=== PATIENT | female | born 1935 | race Caucasian/White ===

== ENCOUNTER 2019-04-05 20:24 | Inpatient (IN) | payer MEDICARE ==
[2019-04-05] MEDS ORDERED: ZOSYN/NS 3.375GM/50ML 3.375 GM/50 ML BAG IV ONE (20:36)
[2019-04-05] MEDS ORDERED: NACL 0.9% 1000 ML 1,000 ML IV ONE (20:36)
--- NOTE | 2019-04-05 20:40 | Emergency Department Report ---
ED General Adult HPI - General Stated complaint: CHEST PAIN Time Seen by Provider: 04/05/19 20:34 - History of Present Illness Initial comments: Patient is 83 years old female with history of hypertension, diabetes and early dementia. Patient brought to the emergency room via EMS accompanied by her and her son. Family stated that patient has been more lethargic and complaining of generalized weakness since yesterday. Patient found to be feb rile with a temperature of 103.2 and tachycardic at 102. Sepsis protocol initiated immediately. Family also stated that she fell 3 days ago and landed on her left face with left maxillary area tenderness. Patient denied any headache, loss of consciousness, neck pain, chest pain, abdominal pain, nausea or vomiting. Patient is alert and oriented 3 and able to answer questions appropriately through the translation. - Related Data Home Medications Medication Instructions Recorded Confirmed Last Taken Aspirin [Aspirin BABY CHEW TAB] 81 mg PO DAILY 12/06/14 04/05/19 04/05/19 Metformin HCl [metFORMIN ER] 1,000 mg PO BID 12/06/14 04/05/19 04/05/19 glipiZIDE [glipiZIDE XL] 10 mg PO BID 12/06/14 04/05/19 04/05/19 Fenofibrate 164 mg PO DAILY 12/07/14 04/05/19 04/05/19 Alendronate Sodium [Fosamax] 70 mg PO QWEEK 04/05/19 04/05/19 04/05/19 AtorvaSTATin [Lipitor] 20 mg PO QHS 04/05/19 04/05/19 04/05/19 Carvedilol [Coreg] 6.25 mg PO BID 04/05/19 04/05/19 04/05/19 Desmopressin Acetate 0.2 mg PO DAILY 04/05/19 04/05/19 04/05/19 Icosapent Ethyl [Vascepa] 1 gm PO DAILY 04/05/19 04/05/19 04/05/19 Lisinopril/Hydrochlorothiazide 1 tab PO BID 04/05/19 04/05/19 04/05/19 [Zestoretic 20-25 mg] Pregabalin [Lyrica] 75 mg PO BID 04/05/19 04/05/19 04/05/19 Allergies Allergy/AdvReac Type Severity Reaction Status Date / Time No Known Allergies Allergy Verified 12/03/14 11:19 ED Review of Systems ROS: Stated complaint: CHEST PAIN Other details as noted in HPI Comment: All other systems reviewed and negative Constitutional: chills, fever ENT: denies: throat pain Cardiovascular: palpitations. denies: chest pain Gastrointestinal: denies: abdominal pain, nausea, vomiting, diarrhea, constipation, hematemesis Musculoskeletal: denies: back pain Neurological: weakness (generalizedgeneralized). denies: headache ED Past Medical Hx - Past Medical History Hx Hypertension: Yes (increased cholesterol) Hx Diabetes: Yes Hx Asthma: Yes - Social History Smoking Status: Never Smoker - Medications Home Medications: Home Medications Medication Instructions Recorded Confirmed Last Taken Type Aspirin [Aspirin BABY CHEW TAB] 81 mg PO DAILY 12/06/14 04/05/19 04/05/19 History Metformin HCl [metFORMIN ER] 1,000 mg PO BID 12/06/14 04/05/19 04/05/19 History glipiZIDE [glipiZIDE XL] 10 mg PO BID 12/06/14 04/05/19 04/05/19 History Fenofibrate 164 mg PO DAILY 12/07/14 04/05/19 04/05/19 History Alendronate Sodium [Fosamax] 70 mg PO QWEEK 04/05/19 04/05/19 04/05/19 History AtorvaSTATin [Lipitor] 20 mg PO QHS 04/05/19 04/05/19 04/05/19 History Carvedilol [Coreg] 6.25 mg PO BID 04/05/19 04/05/19 04/05/19 History Desmopressin Acetate 0.2 mg PO DAILY 04/05/19 04/05/19 04/05/19 History Icosapent Ethyl [Vascepa] 1 gm PO DAILY 04/05/19 04/05/19 04/05/19 History Lisinopril/Hydrochlorothiazide 1 tab PO BID 04/05/19 04/05/19 04/05/19 History [Zestoretic 20-25 mg] Pregabalin [Lyrica] 75 mg PO BID 04/05/19 04/05/19 04/05/19 History ED Physical Exam - General General appearance: alert, in no apparent distress - Head Head exam: Present: other (left zygomatic arch area tenderness) - Eye Eye exam: Present: normal appearance, PERRL - ENT ENT exam: Present: normal exam, normal orophraynx, mucous membranes moist - Neck Neck exam: Present: normal inspection, full ROM. Absent: tenderness, meningismus, lymphadenopathy, thyromegaly - Respiratory Respiratory exam: Present: normal lung sounds bilaterally. Absent: respiratory distress, wheezes, chest wall tenderness - Cardiovascular Cardiovascular Exam: Present: tachycardia - GI/Abdominal GI/Abdominal exam: Present: soft, normal bowel sounds. Absent: distended, tenderness, guarding, rebound, rigid, mass, bruit, pulsatile mass, hernia - Extremities Exam Extremities exam: Present: normal inspection, full ROM, normal capillary refill - Back Exam Back exam: Present: normal inspection, full ROM. Absent: CVA tenderness (R), CVA tenderness (L) - Neurological Exam Neurological exam: Present: alert, oriented X3, CN II-XII intact - Skin Skin exam: Present: warm, intact, normal color ED Course Vital Signs 04/05/19 04/05/19 04/05/19 20:30 20:35 20:45 Temperature 101.8 F H Pulse Rate 100 H 99 H Respiratory 29 H 22 Rate Blood Pressure 161/78 158/65 O2 Sat by Pulse 98 98 98 Oximetry 04/05/19 04/05/19 04/05/19 21:00 21:20 21:30 Temperature Pulse Rate 94 H 99 H 102 H Respiratory 29 H 13 17 Rate Blood Pressure 145/63 145/63 145/63 O2 Sat by Pulse 97 88 78 L Oximetry 04/05/19 04/05/19 04/05/19 21:45 22:00 22:16 Temperature Pulse Rate 105 H 103 H 104 H Respiratory 16 24 22 Rate Blood Pressure 135/58 150/51 156/51 O2 Sat by Pulse 91 91 89 Oximetry 04/05/19 22:30 Temperature 101.2 F H Pulse Rate Respiratory Rate Blood Pressure O2 Sat by Pulse Oximetry ED Medical Decision Making - Lab Data Result diagrams: 04/05/19 20:25 04/05/19 20:25 - Radiology Data Radiology results: report reviewed Chest x-ray is unremarkable. - Medical Decision Making Patient is 83 years old female with history of hypertension, diabetes and early dementia. Patient brought to the emergency room via EMS accompanied by her and her son. Family stated that patient has been more lethargic and complaining of generalized weakness since yesterday. Patient found to be febrile with a temperature of 103.2 and tachycardic at 102. Sepsis protocol initiated immediately. Family also stated that she fell 3 days ago and landed on her left face with left maxillary area tenderness. Patient denied any headache, loss of consciousness, neck pain, chest pain, abdominal pain, nausea or vomiting. Patient is alert and oriented 3 and able to answer questions appropriately through the translation. Patient found to have a UTI. Patient receive Zosyn. Chest x-ray is unremarkable. I discussed the patient is Dr. Jessica Tariq, she agreed to admit the patient to medical service. Critical Care Time: Yes Critical care time in (mins) excluding proc time.: 30 Critical care attestation.: If time is entered above; I have spent that time in minutes in the direct care o f this critically ill patient, excluding procedure time. ED Disposition Clinical Impression: Weakness, Sepsis, UTI (urinary tract infection) Disposition: OP ADMIT IP TO THIS HOSP Is pt being admited?: Yes Condition: Stable
[2019-04-05] MEDS ORDERED: TYLENOL ONE (20:51)
[2019-04-05 21:00] LABS: Basophils % (Auto) 0.3 % (0.0-1.8); Eosinophils % (Auto) 0.4 % (0.0-4.3); Hematocrit 41.8 % (30.3-42.9); Hemoglobin 13.8 gm/dl (10.1-14.3); Lymphocytes # (Auto) 0.9 K/mm3 (1.2-5.4); Mean Corpuscular HGB Conc 33 % (30-34); Mean Corpuscular Volume 88 fl (79-97); Monocytes # (Auto) 0.8 K/mm3 (0.0-0.8); Monocytes % (Auto) 8.8 % (0.0-7.3); Platelet Count 168 K/mm3 (140-440); Red Blood Count 4.78 M/mm3 (3.65-5.03); Red Cell Distribution Width 13.4 % (13.2-15.2)
[2019-04-05] MEDS ORDERED: TYLENOL PO ONE (21:00)
[2019-04-05 21:11] LABS: Amorphous Crystals,Urine 1+; Bilirubin,Urine NEG (Negative); Blood,Urine MOD (Negative); Color,Urine Amber (Yellow); Mucus,Urine FEW /HPF; Urobilinogen,Urine < 2.0 mg/dL (<2.0)
[2019-04-05 21:12] LABS: Protein,Urine >500 mg/dL (Negative)
[2019-04-05 21:22] LABS: Albumin 3.4 g/dL (3.9-5)
--- NOTE | 2019-04-05 21:29 | XRay Report ---
PROCEDURE: XR CHEST 1V AP TECHNIQUE: Chest radiograph single view. HISTORY: cough COMPARISONS: None . FINDINGS: There is prominence of the interstitial markings in both lungs with peribronchial thickening, acute v ersus chronic. There is no evidence of focal infiltrate, pneumothorax or pleural fluid collection. The cardiac silhouette is enlarged. The thoracic aorta is tortuous with atherosclerotic vascular calcification. There appears to be prominence of the hilar structures bilaterally. Whether or not this represents pu lmonary vascular structures or adenopathy is unclear. The bony structures are osteopenic in appearance. IMPRESSION: 1. Prominence of the interstitial markings with peribronchial thickening, acute versus chronic. 2. Enlarged cardiac silhouette. 3. Tortuosity thoracic aorta with atherosclerotic vascular calcification. 4. Prominence of the hilar structures bilaterally. Prominent vascular structures versus adenopathy. CT chest may be helpful for further evaluation. This document is electronically signed by Matilde Gutierrez MD., Apr 05 2019 09:27:35 PM ET
--- NOTE | 2019-04-05 22:00 | Cat Scan Report ---
PROCEDURE: CT HEAD/BRAIN WO CON TECHNIQUE: Computerized tomography of the head was performed without contrast material. CT DOSE LENGTH PRODUCT: 1585.78 mGycm HISTORY: head injury COMPARISONS: CT face also performed today . FINDINGS: There is no evidence of an acute intracranial process, intracranial hemorrhage or mass effect. There is an approximately 1 cm partially calcified extra-axial mass in the right frontal region. Prob able small meningioma. There are chronic lacunar infarcts in the right caudate and in the dennis on the right. Ventricular size is concordant with the degree of atrophy. There is atherosclerotic vascular calcification of the internal carotid arteries bilaterally at the s kull base. The visualized portions of the orbits, paranasal and mastoid sinuses are unremarkable. There is no evidence of fracture. 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 There is postsurgical change in the region of the nasal bones. IMPRESSION: 1. No evidence of an acute intracranial process, intracranial hemorrhage or mass effect. 2. Small right frontal meningioma. 3. Chronic lacunar infarct right caudate and dennis on the right. 4. No evidence of fracture. This document is electronically signed by Matilde Gutierrez MD., Apr 05 2019 09:58:15 PM ET
--- NOTE | 2019-04-05 22:07 | Cat Scan Report ---
PROCEDURE: CT FACIAL BONES WO CON TECHNIQUE: Axial helical imaging through the face with sagittal and coronal reformatted images obtai liza. HISTORY: FALL, FACIAL TRAUMA COMPARISONS: Head CT also performed today FINDINGS: There is no evidence of fracture. There is postsurgical change in the region of the nasal bones. Paranasal sinuses are unremarkable. The orbital contents are unremarkable. There is a small right frontal partially calcified meningioma. The visualized portion of the cervical spine is notable for cervical spondylosis with multiple level canal stenosis. IMPRESSION: 1. No evidence of fracture. 2. Postsurgical change in the region of the nasal bones. 3. Small right frontal meningioma. 4. Cervical spondylosis with the appearance of multiple level canal stenosis. This document is electronically signed by Matilde Gutierrez MD., Apr 05 2019 10:05:37 PM ET
--- NOTE | 2019-04-05 23:57 | History and Physical Report ---
History of Present Illness Date of examination: 04/05/19 Date of admission: 04/05/19 23:25 History of present illness: 83-year-old woman with a history of diabetes, hypertension, hyperlipidemia, dementia comes to the emergency room because the state that she needed assistance to do her ADLs. She feels weak, status post fall yesterday, hit her face, no trauma to head. History is per the via the [employer], unable to obtain review of systems PAST MEDICAL HISTORY: PAST SURGICAL HISTORY: None SOCIAL HISTORY: Denies alcohol, drugs, tobacco FAMILY HISTORY: Hypertension Medications and Allergies Allergies Allergy/AdvReac Type Severity Reaction Status Date / Time No Known Allergies Allergy Verified 12/03/14 11:19 Home Medications Medication Instructions Recorded Confirmed Last Taken Type Aspirin [Aspirin BABY CHEW TAB] 81 mg PO DAILY 12/06/14 04/05/19 04/05/19 Histo ry Metformin HCl [metFORMIN ER] 1,000 mg PO BID 12/06/14 04/05/19 04/05/19 History glipiZIDE [glipiZIDE XL] 10 mg PO BID 12/06/14 04/05/19 04/05/19 History Fenofibrate 164 mg PO DAILY 12/07/14 04/05/19 04/05/19 History Alendronate Sodium [Fosamax] 70 mg PO QWEEK 04/05/19 04/05/19 04/05/19 History AtorvaSTATin [Lipitor] 20 mg PO QHS 04/05/19 04/05/19 04/05/19 History Carvedilol [Coreg] 6.25 mg PO BID 04/05/19 04/05/19 04/05/19 History Desmopressin Acetate 0.2 mg PO DAILY 04/05/19 04/05/19 04/05/19 History Icosapent Ethyl [Vascepa] 1 gm PO DAILY 04/05/19 04/05/19 04/05/19 History Lisinopril/Hydrochlorothiazide 1 tab PO BID 04/05/19 04/05/19 04/05/19 History [Zestoretic 20-25 mg] Pregabalin [Lyrica] 75 mg PO BID 04/05/19 04/05/19 04/05/19 History Exam - Physical Exam Narrative exam: General Apperance: The patient lying in bed, breathing comfortable HEENT: Normocephalic, atraumatic. Pupils equally round and reactive to light, EOMI, no sclericterus or JVD or thyromegaly or nodule. , no carotid bruit, mucous membranes moist, no exudate or erythema Heart: S1-S2, regular is rhythm Lungs: Clear to auscultation bilaterally, breathing comfortable Abdomen: Positive bowel sounds, soft, nontender, nondistended, no organomegaly Extremities: No edema cyanosis clubbing Skin: no rash, nodule, warm and dry Neuro: cranial nerves 2-12 intact, speech is fluent, motor/sensory intact - Constitutional Vitals: Temp Pulse Resp BP Pulse Ox 101.2 F H 97 H 17 107/46 96 04/05/19 22:30 04/05/19 23:45 04/05/19 23:45 04/05/19 23:45 04/05/19 23:45 Results - Labs CBC & Chem 7: 04/05/19 20:25 04/05/19 20:25 Labs: Abnormal lab results 04/05/19 04/05/19 04/05/19 Range/Units 20:25 20:25 20:47 Lymph % (Auto) 10.0 L (13.4-35.0) % [place] % (Auto) 8.8 H (0.0-7.3) % Lymph # 0.9 L (1.2-5.4) K/mm3 Seg Neutrophils % 80.5 H (40.0-70.0) % Sodium 131 L (137-145) mmol/L Chloride 93.9 L (98-107) mmol/L BUN 30 H (7-17) mg/dL Creatinine 1.7 H (0.7-1.2) mg/dL Glucose 153 H (65-100) mg/dL Albumin 3.4 L (3.9-5) g/dL Urine WBC (Auto) 64.0 H (0.0-6.0) /HPF - Imaging and Cardiology Chest x-ray: report reviewed CT Scan - head: report reviewed Assessment and Plan CT face reviewed Assessment Acute renal failure Urinary tract infection Diabetes Dementia Hyperlipidemia Plan Admit to medicine Start IV fluid, monitor kidney function Sart IV Rocephin, cultures Check fingersticks, hold sliding scale until she is eating DVT prophylaxis
[2019-04-06] MEDS ORDERED: D50W (25GM) Syringe IV PRN (00:02)
[2019-04-06] MEDS ORDERED: ZOFRAN IV PRN (00:02)
[2019-04-06] MEDS ORDERED: SODIUM CHLORIDE FLUSH SYRINGE 10 ML IV PRN (00:02)
[2019-04-06] MEDS: NACL 0.9% 1000 ML 1,000 ML IV SCH ×2 (01:23→15:57)
[2019-04-06] MEDS: ROCEPHIN/NS 1 GM/50 ML 1 GM/50 ML BAG IV SCH (07:22)
[2019-04-06] MEDS: TYLENOL PO PRN ×2 (07:22→21:46)
[2019-04-06 09:29] LABS: Basophils % (Auto) 0.3 % (0.0-1.8); Eosinophils # (Auto) 0.1 K/mm3 (0.0-0.4); Eosinophils % (Auto) 0.9 % (0.0-4.3); Hematocrit 36.8 % (30.3-42.9); Hemoglobin 12.4 gm/dl (10.1-14.3); Lymphocytes # (Auto) 0.9 K/mm3 (1.2-5.4); Lymphocytes % (Auto) 13.6 % (13.4-35.0); Mean Corpuscular HGB Conc 34 % (30-34); Mean Corpuscular Volume 87 fl (79-97); Monocytes # (Auto) 0.6 K/mm3 (0.0-0.8); Monocytes % (Auto) 9.9 % (0.0-7.3); Platelet Count 130 K/mm3 (140-440); Red Blood Count 4.23 M/mm3 (3.65-5.03); Red Cell Distribution Width 13.6 % (13.2-15.2)
[2019-04-06 09:45] LABS: Calcium 7.7 mg/dL (8.4-10.2)
[2019-04-06] MEDS ORDERED: DESMOPRESSIN ACETATE 0.2 MG PO SCH (10:00)
[2019-04-06] MEDS ORDERED: FENOFIBRATE PO SCH (10:00)
--- NOTE | 2019-04-06 10:03 | Progress Note ---
Assessment and Plan Assessment and plan: Urinary tract infection admitted to [facility] Ceftriaxone iv ROMELIA possibly due to vasomotor nephropathy improving, on iv fluids Generalized weakness due to dehydration Hyponatremia Improving Na 136 today Diabetes mellitus type 2 Fingerstick glucose q ac and hs Hyperlipidemia Dementia Used language line for communication with Patient and . Patient is Martiniquais Hopefully dc home in 1-2 days History Interval history: generalized weakness fell at home Hospitalist Physical - Physical exam Narrative exam: Gen: Not in acute distress, lying in bed, HEENT: Normocephalic, atraumatic Neck: supple, no JVD Heart: S1 and S2 reg, no murmurs, rubs or gallop Lungs: Clear, no crackles, no wheeze Abd: soft, non tender, non distended, normal BS Ext: No edema, no clubbing, no cyanosis, Neuro: Awake,alert, oriented x 3, moves all ext, non focal Psych:Normal mood - Constitutional Vitals: Temp Pulse Resp BP Pulse Ox 99.5 F 93 H 20 128/60 95 04/06/19 08:20 04/06/19 08:20 04/06/19 08:20 04/06/19 08:20 04/06/19 08:21 Results - Labs CBC & Chem 7: 04/06/19 09:09 04/06/19 09:09 Labs: Laboratory Last Values WBC 6.5 K/mm3 (4.5-11.0) 04/06/19 09:09 RBC 4.23 M/mm3 (3.65-5.03) 04/06/19 09:09 Hgb 12.4 gm/dl (10.1-14.3) 04/06/19 09:09 Hct 36.8 % (30.3-42.9) 04/06/19 09:09 MCV 87 fl (79-97) 04/06/19 09:09 MCH 29 pg (28-32) 04/06/19 09:09 MCHC 34 % (30-34) 04/06/19 09:09 RDW 13.6 % (13.2-15.2) 04/06/19 09:09 Plt Count 130 K/mm3 (140-440) L 04/06/19 09:09 Lymph % (Auto) 13.6 % (13.4-35.0) 04/06/19 09:09 Falls % (Auto) 9.9 % (0.0-7.3) H 04/06/19 09:09 Eos % (Auto) 0.9 % (0.0-4.3) 04/06/19 09:09 Baso % (Auto) 0.3 % (0.0-1.8) 04/06/19 09:09 Lymph # 0.9 K/mm3 (1.2-5.4) L 04/06/19 09:09 Falls # 0.6 K/mm3 (0.0-0.8) 04/06/19 09:09 Eos # 0.1 K/mm3 (0.0-0.4) 04/06/19 09:09 Baso # 0.0 K/mm3 (0.0-0.1) 04/06/19 09:09 Seg Neutrophils % 75.3 % (40.0-70.0) H 04/06/19 09:09 Seg Neutrophils # 4.9 K/mm3 (1.8-7.7) 04/06/19 09:09 Sodium 136 mmol/L (137-145) L 04/06/19 09:09 Potassium 3.8 mmol/L (3.6-5.0) 04/06/19 09:09 Chloride 99.7 mmol/L (98-107) 04/06/19 09:09 Carbon Dioxide 24 mmol/L (22-30) 04/06/19 09:09 16 mmol/L 04/06/19 09:09 BUN 27 mg/dL (7-17) H 04/06/19 09:09 1.6 mg/dL (0.7-1.2) H 04/06/19 09:09 Estimated GFR 31 ml/min 04/06/19 09:09 17 % 04/06/19 09:09 Glucose 159 mg/dL (65-100) H 04/06/19 09:09 POC Glucose 138 (70-105) H 04/06/19 08:19 Lactic Acid 0.80 mmol/L (0.7-2.0) 04/05/19 23:08 Calcium 7.7 mg/dL (8.4-10.2) L 04/06/19 09:09 0.50 mg/dL (0.1-1.2) 04/05/19 20:25 AST 32 units/L (5-40) 04/05/19 20:25 ALT 25 units/L (7-56) 04/05/19 20:25 78 units/L (35-129) 04/05/19 20:25 < 0.010 ng/mL (0.00-0.029) 04/05/19 20:25 7.8 g/dL (6.3-8.2) 04/05/19 20:25 3.4 g/dL (3.9-5) L 04/05/19 20:25 0.8 % 04/05/19 20:25 Bonnie (Yellow) 04/05/19 20:47 Cloudy (Clear) 04/05/19 20:47 5.0 (5.0-7.0) 04/05/19 20:47 Ur Specific [place] 1.016 (1.003-1.030) 04/05/19 20:47 >500 mg/dL (Negative) 04/05/19 20:47 50 mg/dL (Negative) 04/05/19 20:47 Neg mg/dL (Negative) 04/05/19 20:47 Mod (Negative) 04/05/19 20:47 Neg (Negative) 04/05/19 20:47 Neg (Negative) 04/05/19 20:47 < 2.0 mg/dL (<2.0) 04/05/19 20:47 Ur Leukocyte Esterase Sm (Negative) 04/05/19 20:47 64.0 /HPF (0.0-6.0) H 04/05/19 20:47 7.0 /HPF (0.0-6.0) 04/05/19 20:47 3+ /HPF 04/05/19 20:47 Amorphous Crystals 1+ 04/05/19 20:47 Few /HPF 04/05/19 20:47 Active Medications - Current Medications Current Medications: Generic Name Dose Route Start Last Admin Trade Name Freq PRN Reason Stop Dose Admin Acetaminophen 650 mg 04/06/19 00:02 04/06/19 07:22 Tylenol PO 650 mg Q4H PRN Administration Pain MILD(1-3)/Fever >100.5/VILLALBA Aspirin 81 mg 04/06/19 10:00 Baby Aspirin PO DAILY KASSIE Atorvastatin Calcium 20 mg 04/06/19 22:00 Lipitor PO QHS KASSIE Desmopressin Acetate 0.2 mg 04/06/19 10:00 Ddavp PO DAILY KASSIE Dextrose 50 ml 04/06/19 00:02 D50w (25gm) Syringe IV PRN PRN Hypoglycemia Enoxaparin Sodium 30 mg 04/06/19 10:00 Lovenox SUB-Q QDAY KASSIE Fenofibrate 145 mg 04/06/19 10:00 Tricor PO DAILY KASSIE Sodium Chloride 1,000 mls @ 75 mls/hr 04/06/19 01:00 04/06/19 01:23 Nacl 0.9% 1000 Ml IV 75 mls/hr DIRECT KASSIE Administration Ceftriaxone Sodium 1 gm in 50 mls @ 100 mls/hr 04/06/19 06:26 04/06/19 07:22 Rocephin/Ns 1 Gm/50 Ml IV 100 mls/hr Q24HR KASSIE Administration Protocol Miscellaneous Medication 1 gm 04/06/19 10:00 Icosapent Ethyl [Vascepa] PO DAILY [facility] Ondansetron HCl 4 mg 04/06/19 00:02 Zofran IV Q8H PRN Nausea And Vomiting Pneumococcal Polyvalent Vaccine 0.5 ml 04/06/19 12:00 Pneumovax 23 IM 04/06/19 12:01 .ONCE ONE Pregabalin 75 mg 04/06/19 10:00 Lyrica PO BID KASSIE Sodium Chloride 10 ml 04/06/19 10:00 Sodium Chloride Flush Syringe 10 Ml IV BID KASSIE Sodium Chloride 10 ml 04/06/19 00:02 Sodium Chloride Flush Syringe 10 Ml IV PRN PRN LINE FLUSH
[2019-04-06] MEDS: TRICOR PO SCH (10:16)
[2019-04-06] MEDS: LOVENOX SUB-Q SCH (10:16)
[2019-04-06] MEDS: SODIUM CHLORIDE FLUSH SYRINGE 10 ML IV SCH ×2 (10:16→21:48)
[2019-04-06] MEDS: BABY ASPIRIN PO SCH (10:16)
[2019-04-06] MEDS: LYRICA PO SCH ×2 (10:17→21:47)
[2019-04-06] MEDS: DDAVP PO SCH (10:36)
[2019-04-06] MEDS ORDERED: AFLURIA QUAD 2018-2019 SYRINGE IM ONE (12:00)
[2019-04-06] MEDS ORDERED: PNEUMOVAX 23 IM ONE (12:00)
[2019-04-06] MEDS: ICOSAPENT ETHYL 1 GM PO SCH (16:44)
[2019-04-06] MEDS: COREG PO SCH (21:47)
[2019-04-07] MEDS: NACL 0.9% 1000 ML 1,000 ML IV SCH ×2 (02:59→22:08)
[2019-04-07 05:33] LABS: Hematocrit 35.8 % (30.3-42.9); Hemoglobin 12.1 gm/dl (10.1-14.3); Mean Corpuscular HGB Conc 34 % (30-34); Mean Corpuscular Volume 87 fl (79-97); Platelet Count 147 K/mm3 (140-440); Red Blood Count 4.11 M/mm3 (3.65-5.03); Red Cell Distribution Width 13.7 % (13.2-15.2)
[2019-04-07 05:55] LABS: Calcium 7.9 mg/dL (8.4-10.2)
[2019-04-07] MEDS: TYLENOL PO PRN (09:07)
[2019-04-07] MEDS: LYRICA PO SCH ×2 (09:08→22:09)
[2019-04-07] MEDS: COREG PO SCH ×2 (09:08→22:09)
[2019-04-07] MEDS: BABY ASPIRIN PO SCH (09:09)
[2019-04-07] MEDS: DDAVP PO SCH (09:09)
[2019-04-07] MEDS: TRICOR PO SCH (09:09)
[2019-04-07] MEDS: LOVENOX SUB-Q SCH (09:09)
[2019-04-07] MEDS: ROCEPHIN/NS 1 GM/50 ML 1 GM/50 ML BAG IV SCH (09:10)
[2019-04-07] MEDS: ICOSAPENT ETHYL 1 GM PO SCH (09:12)
[2019-04-07] MEDS: SODIUM CHLORIDE FLUSH SYRINGE 10 ML IV SCH ×2 (09:12→22:10)
--- NOTE | 2019-04-07 10:56 | Progress Note ---
Assessment and Plan Assessment and plan: 83-year-old woman with a history of diabetes, hypertension, hyperlipidemia, dementia comes to the emergency room because the state that she needed assistance to do her ADLs. She feels weak, status post fall yesterday, hit her face, no trauma to head. History is per the via the interpreter translator, unable to obtain review of systems Sepsis secondary to Acute cystitis -As NOTED Below. Blood culture with no growth, obtain renal ultrasound Acute Metabolic encephalopathy -MRI head pending. Urinary tract infection admitted to [facility] Ceftriaxone iv Still with fever Consult ID ROMELIA possibly due to vasomotor nephropathy improving, on iv fluids Generalized weakness due to dehydration Hyponatremia Improving Diabetes mellitus type 2 Fingerstick glucose q ac and hs Hyperlipidemia Dementia frontal meningioma on CT -Pt to follow with PCP outpatient for further work up. Discussed with patient and -Check MRI per request -Possible Adenopathy ON CT CHEST -Also to follow with PCP for further work up and repeat imaging. Discussed with patient and -Discussed with ID will obtain CT chest Used language line for communication with Patient and . Patient is Viet[place] amese Hopefully dc home in 1 day History Interval history: Patient seen and examined, Discussion with patient and via [employer] interpreter translator #[id number]. Per the , although he is unable to accurately account for timelines he states the patient has been having cough which she thinks started after the fall. He also reports to me that the patient has been speaking "nonsensical" intermittently for the past few days prior to this event. Nursing staff reports fever again today Hospitalist Physical - Physical exam Narrative exam: VITAL SIGNS: Reviewed. GENERAL: The patient appeared well nourished and normally developed, obese, lethargic. Vital signs as documented. HEAD: No signs of head trauma. right maxillary sinus swelling, no echymosis EYES: Pupils are equal. Extraocular motions intact. EARS: Hearing grossly intact. MOUTH: Oropharynx is normal. NECK: No adenopathy, no JVD. Mildly tender on the right side. CHEST: Chest with clear breath sounds bilaterally. No wheezes, rales, or rhonchi. CARDIAC: Regular rate and rhythm. S1 and S2, without murmurs, gallops, or rubs. VASCULAR: No Edema. Peripheral pulses normal and equal in all extremities. ABDOMEN: Soft, non tender and non distended. No rebound or guarding, and no masses palpated. Bowel Sounds normal. MUSCULOSKELETAL: Good range of motion of all major joints. Extremities without clubbing, cyanosis or edema. NEUROLOGIC EXAM: Alert and oriented x 2 No focal sensory or strength deficits. Speech normal but often uncomprehending per . Follows some commands. PSYCHIATRIC: Mood normal. SKIN: No rash or lesions. - Constitutional Vitals: Temp Pulse Resp BP Pulse Ox 101.3 F H 85 20 144/65 97 04/07/19 07:56 04/07/19 09:08 04/07/19 10:00 04/07/19 09:08 04/07/19 10:00 Results - Labs CBC & Chem 7: 04/07/19 04:43 04/07/19 04:43 Labs: Laboratory Last Values WBC 5.2 K/mm3 (4.5-11.0) 04/07/19 04:43 RBC 4.11 M/mm3 (3.65-5.03) 04/07/19 04:43 Hgb 12.1 gm/dl (10.1-14.3) 04/07/19 04:43 Hct 35.8 % (30.3-42.9) 04/07/19 04:43 MCV 87 fl (79-97) 04/07/19 04:43 MCH 29 pg (28-32) 04/07/19 04:43 MCHC 34 % (30-34) 04/07/19 04:43 RDW 13.7 % (13.2-15.2) 04/07/19 04:43 Plt Count 147 K/mm3 (140-440) 04/07/19 04:43 Lymph % (Auto) 13.6 % (13.4-35.0) 04/06/19 09:09 [place] % (Auto) 9.9 % (0.0-7.3) H 04/06/19 09:09 Eos % (Auto) 0.9 % (0.0-4.3) 04/06/19 09:09 Baso % (Auto) 0.3 % (0.0-1.8) 04/06/19 09:09 Lymph # 0.9 K/mm3 (1.2-5.4) L 04/06/19 09:09 [place] # 0.6 K/mm3 (0.0-0.8) 04/06/19 09:09 Eos # 0.1 K/mm3 (0.0-0.4) 04/06/19 09:09 Baso # 0.0 K/mm3 (0.0-0.1) 04/06/19 09:09 Seg Neutrophils % 75.3 % (40.0-70.0) H 04/06/19 09:09 Seg Neutrophils # 4.9 K/mm3 (1.8-7.7) 04/06/19 09:09 Sodium 138 mmol/L (137-145) 04/07/19 04:43 Potassium 4.2 mmol/L (3.6-5.0) 04/07/19 04:43 Chloride 104.7 mmol/L (98-107) 04/07/19 04:43 Carbon Dioxide 22 mmol/L (22-30) 04/07/19 04:43 16 mmol/L 04/07/19 04:43 BUN 23 mg/dL (7-17) H 04/07/19 04:43 1.4 mg/dL (0.7-1.2) H 04/07/19 04:43 Estimated GFR 36 ml/min 04/07/19 04:43 16 % 04/07/19 04:43 Glucose 165 mg/dL (65-100) H 04/07/19 04:43 POC Glucose 169 (70-105) H 04/07/19 06:06 Lactic Acid 0.80 mmol/L (0.7-2.0) 04/05/19 23:08 Calcium 7.9 mg/dL (8.4-10.2) L 04/07/19 04:43 0.50 mg/dL (0.1-1.2) 04/05/19 20:25 AST 32 units/L (5-40) 04/05/19 20:25 ALT 25 units/L (7-56) 04/05/19 20:25 78 units/L (35-129) 04/05/19 20:25 < 0.010 ng/mL (0.00-0.029) 04/05/19 20:25 7.8 g/dL (6.3-8.2) 04/05/19 20:25 3.4 g/dL (3.9-5) L 04/05/19 20:25 0.8 % 04/05/19 20:25 Bonnie (Yellow) 04/05/19 20:47 Cloudy (Clear) 04/05/19 20:47 5.0 (5.0-7.0) 04/05/19 20:47 Ur Specific Foley 1.016 (1.003-1.030) 04/05/19 20:47 >500 mg/dL (Negative) 04/05/19 20:47 50 mg/dL (Negative) 04/05/19 20:47 Neg mg/dL (Negative) 04/05/19 20:47 Mod (Negative) 04/05/19 20:47 Neg (Negative) 04/05/19 20:47 Neg (Negative) 04/05/19 20:47 < 2.0 mg/dL (<2.0) 04/05/19 20:47 Ur Leukocyte Esterase Sm (Negative) 04/05/19 20:47 64.0 /HPF (0.0-6.0) H 04/05/19 20:47 7.0 /HPF (0.0-6.0) 04/05/19 20:47 3+ /HPF 04/05/19 20:47 Amorphous Crystals 1+ 04/05/19 20:47 Few /HPF 04/05/19 20:47 Active Medications - Current Medications Current Medications: Generic Name Dose Route Start Last Admin Trade Name Freq PRN Reason Stop Dose Admin Acetaminophen 650 mg 04/06/19 00:02 04/07/19 09:07 Tylenol PO 650 mg Q4H PRN Administration Pain MILD(1-3)/Fever >100.5/VILLALBA Aspirin 81 mg 04/06/19 10:00 04/07/19 09:09 Baby Aspirin PO 81 mg DAILY KASSIE Administration Atorvastatin Calcium 20 mg 04/06/19 22:00 04/06/19 21:47 Lipitor PO 20 mg QHS KASSIE Administration Carvedilol 6.25 mg 04/06/19 22:00 04/07/19 09:08 Coreg PO 6.25 mg BID KASSIE Administration Desmopressin Acetate 0.2 mg 04/06/19 10:00 04/07/19 09:09 Ddavp PO 0.2 mg DAILY KASSIE Administration Dextrose 50 ml 04/06/19 00:02 D50w (25gm) Syringe IV PRN PRN Hypoglycemia Enoxaparin Sodium 30 mg 04/06/19 10:00 04/07/19 09:09 Lovenox SUB-Q 30 mg QDAY KASSIE Administration Fenofibrate 145 mg 04/06/19 10:00 04/07/19 09:09 Tricor PO 145 mg DAILY KASSIE Administration Sodium Chloride 1,000 mls @ 75 mls/hr 04/06/19 01:00 04/07/19 02:59 Nacl 0.9% 1000 Ml IV 75 mls/hr DIRECT KASSIE Administration Ceftriaxone Sodium 1 gm in 50 mls @ 100 mls/hr 04/06/19 06:26 04/07/19 09:10 Rocephin/Ns 1 Gm/50 Ml IV 100 mls/hr Q24HR KASSIE Administration Protocol Miscellaneous Medication 1 gm 04/06/19 10:00 04/07/19 09:12 Icosapent Ethyl [Vascepa] PO 1 gm DAILY KASSIE Administration Ondansetron HCl 4 mg 04/06/19 00:02 Zofran IV Q8H PRN Nausea And Vomiting Pregabalin 75 mg 04/06/19 10:00 04/07/19 09:08 Lyrica PO 75 mg BID KASSIE Administration Sodium Chloride 10 ml 04/06/19 10:00 04/07/19 09:12 Sodium Chloride Flush Syringe 10 Ml IV 10 ml BID KASSIE Administration Sodium Chloride 10 ml 04/06/19 00:02 Sodium Chloride Flush Syringe 10 Ml IV PRN PRN LINE FLUSH Nutrition/Malnutrition Assess - Dietary Evaluation Nutrition/Malnutrition Findings: Nutrition Notes Start: 04/06/19 11:55 Freq: Status: Active Protocol: Document 04/06/19 11:55 AMEE (Rec: 04/06/19 12:00 [facility] SRW- [email or web address]) Nutrition Notes Need for 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 Burn Absent Trauma Absent Difficulty In Chewing #1 Nutrition Diagnosis Predicted suboptimal energy intake Etiology advanced age; hx of dementia, UTI As Evidenced by Signs and Symptoms pt confused upon arrival and is weak Is patient on ventilator? No Is Patient Ambulatory and/or Out of Bed No REE-([facility]-confined to bed) 0728.812 Calculation Used for Recommendations [facility] Additional Notes Pro needs 1-1.2g/k-82g/ day Fluid needs 1ml/kcal Nutrition Intervention Change Diet Order: Add mech soft modifier to current diet order Goal #1 PO intake of meals to meet at least 75% of energy and pro needs Anticipated Discharge Needs: None identified at this time Follow-Up By: 04/09/19 Additional Comments F/U: intakes
--- NOTE | 2019-04-07 16:02 | Consultation ---
History of Present Illness - Reason for Consult Consult date: 04/07/19 sepsis, UTI Requesting physician: SO LIAO - History of Present Illness 83 y/o female with history of hypertension, diabetes and early dementia admitted on due to 3-day history of AMS/confusion, generalized weakness and a fall from bed to ground landing on her left face. 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 states she was fine before fall however reports some cough for a week. Denies hemoptysis or history of TB. Patient came to [facility] 25 years ago. In the ED, temp 101.8, HR 100, R29, O2 98, BP 161/78. WBC 9.4. Hg 13.8. Plat 168. Creat 1.7. LFTs normal. UA with 64 wbc, small LE, 3+ wbc clumps. Blood cultures 04/05/2019no growth today. MRSA screening neg. CXR showed prominence of the interstitial markings with peribronchial thickening, acute versus chronic, enlarged cardiac silhouette, tortuosity thoracic aorta with atherosclerotic vascular calcification and prominence of the hilar structures bilaterally. Prominent vascular structures versus adenopathy. CT face no fractures. Review of Systems: unable to obtain. Medications and Allergies Allergies Allergy/AdvReac Type Severity Reaction Status Date / Time No Known Allergies Allergy Verified 12/03/14 11:19 Home Medications Medication Instructions Recorded Confirmed Last Taken Type Aspirin [Aspirin BABY CHEW TAB] 81 mg PO DAILY 12/06/14 04/05/19 04/05/19 History Metformin HCl [metFORMIN ER] 1,000 mg PO BID 12/06/14 04/05/19 04/05/19 History glipiZIDE [glipiZIDE XL] 10 mg PO BID 12/06/14 04/05/19 04/05/19 History Fenofibrate 164 mg PO DAILY 12/07/14 04/05/19 04/05/19 History Alendronate Sodium [Fosamax] 70 mg PO QWEEK 04/05/19 04/05/19 04/05/19 History AtorvaSTATin [Lipitor] 20 mg PO QHS 04/05/19 04/05/19 04/05/19 History Carvedilol [Coreg] 6.25 mg PO BID 04/05/19 04/05/19 04/05/19 History Desmopressin Acetate 0.2 mg PO DAILY 04/05/19 04/05/19 04/05/19 History Icosapent Ethyl [Vascepa] 1 gm PO DAILY 04/05/19 04/05/19 04/05/19 History Lisinopril/Hydrochlorothiazide 1 tab PO BID 04/05/19 04/05/19 04/05/19 History [Zestoretic 20-25 mg] Pregabalin [Lyrica] 75 mg PO BID 04/05/19 04/05/19 04/05/19 History Active Meds: Active Medications Acetaminophen (Tylenol) 650 mg PO Q4H PRN PRN Reason: Pain MILD(1-3)/Fever >100.5/VILLALBA Last Admin: 04/07/19 09:07 Dose: 650 mg Documented by: Aspirin (Baby Aspirin) 81 mg PO DAILY [facility] Last Admin: 04/07/19 09:09 Dose: 81 mg Documented by: Atorvastatin Calcium (Lipitor) 20 mg PO QHS [facility] Last Admin: 04/06/19 21:47 Dose: 20 mg Documented by: Carvedilol (Coreg) 6.25 mg PO BID [facility] Last Admin: 04/07/19 09:08 Dose: 6.25 mg Documented by: Desmopressin Acetate (Ddavp) 0.2 mg PO DAILY [facility] Last Admin: 04/07/19 09:09 Dose: 0.2 mg Documented by: Dextrose (D50w (25gm) Syringe) 50 ml IV PRN PRN PRN Reason: Hypoglycemia Enoxaparin Sodium (Lovenox) 30 mg SUB-Q QDAY [facility] Last Admin: 04/07/19 09:09 Dose: 30 mg Documented by: Fenofibrate (Tricor) 145 mg PO DAILY [facility] Last Admin: 04/07/19 09:09 Dose: 145 mg Documented by: Sodium Chloride (Nacl 0.9% 1000 Ml) 1,000 mls @ 75 mls/hr IV DIRECT [facility] Last Admin: 04/07/19 02:59 Dose: 75 mls/hr Documented by: Ceftriaxone Sodium (Rocephin/Ns 1 Gm/50 Ml) 1 gm in 50 mls @ 100 mls/hr IV Q24HR [facility]; Protocol Last Admin: 04/07/19 09:10 Dose: 100 mls/hr Documented by: Insulin Human Lispro (Humalog) 0 unit SUB-Q ACHS [facility]; Protocol Miscellaneous Medication (Icosapent Ethyl [Vascepa]) 1 gm PO DAILY [facility] Last Admin: 04/07/19 09:12 Dose: 1 gm Documented by: Ondansetron HCl (Zofran) 4 mg IV Q8H PRN PRN Reason: Nausea And Vomiting Pregabalin (Lyrica) 75 mg PO BID [facility] Last Admin: 04/07/19 09:08 Dose: 75 mg Documented by: Sodium Chloride (Sodium Chloride Flush Syringe 10 Ml) 10 ml IV BID [facility] Last Admin: 04/07/19 09:12 Dose: 10 ml Documented by: Sodium Chloride (Sodium Chloride Flush Syringe 10 Ml) 10 ml IV PRN PRN PRN Reason: LINE FLUSH Physical Examination - Physical Exam Narrative exam: General appearance: Alert in NAD coughing Eyes: anicteric sclerae, moist conjunctivae; no lid-lag; PERRLA HENT: Atraumatic; oropharynx clear with moist mucous membranes and no mucosal ulcerations/no oral thrush; normal hard and soft palate. Normal external ears. Neck: Trachea midline; supple, no thyromegaly or lymphadenopathy Lungs: CTA CV: RRR no murmur Abdomen: Soft, non-tender; no masses or hepatosplenomegaly Extremities: no edema, cyanosis Skin: Normal temperature, turgor and texture; no rash, ulcers or subcutaneous nodules Psych: Appropriate affect, alert and oriented to person, place and time. Neuro: alert and oriented x 3. Moving all extermities - Constitutional Vitals: Vital Signs Temp Pulse Resp BP Pulse Ox 101.3 F H 85 20 144/65 97 04/07/19 07:56 04/07/19 09:08 04/07/19 10:00 04/07/19 09:08 04/07/19 10:00 Temperature -Last 24 Hours Temperature 101.3 F Temperature 98.8 F Temperature 103.0 F Results - Labs CBC & Chem 7: 04/07/19 04:43 04/07/19 04:43 Labs: Abnormal lab results 04/06/19 04/06/19 04/07/19 Range/Units 16:40 18:47 00:29 BUN (7-17) mg/dL Creatinine (0.7-1.2) mg/dL Glucose (65-100) mg/dL POC Glucose 176 H 198 H 189 H (70-105) Calcium (8.4-10.2) mg/dL 04/07/19 04/07/19 04/07/19 Range/Units 04:43 06:06 12:06 BUN 23 H (7-17) mg/dL Creatinine 1.4 H (0.7-1.2) mg/dL Glucose 165 H (65-100) mg/dL POC Glucose 169 H 225 H (70-105) Calcium 7.9 L (8.4-10.2) mg/dL Assessment and Plan Cultures: Blood cultures 04/05/2019 no growth today Assessment: 83 y/o female with history of hypertension, diabetes and early dementia admitted on due to 3-day history of AMS/confusion, generalized weakness and a fall from bed to ground landing on her left face: 1) Sepsis: Present on admission, manifested by fever, tachycardia, ROMELIA and AMS. Etiology most likely UTI +/- ? bronchitis. 2) UTI: UA with 64 wbc, small LE, 3+ wbc clumps. 3) Bronchitis: CXR showed prominence of the interstitial markings with peribronchial thickening, acute versus chronic, enlarged cardiac silhouette, tortuosity thoracic aorta with atherosclerotic vascular calcification and prominence of the hilar structures bilaterally. Prominent vascular structures versus adenopathy. 4) Acute encephalopathy on top of early dementia. CT no acute changes, right s mall frontal meningioma, old lacunar infarct. 5) ROMELIA: renally dosed all antibiotics. Recommendations: - follow-up blood cultures, request stat urine culture - follow-up renal US - agree with chest CT - increase ceftriaxone 2 gm IV qday - monitor fever Will follow. Lizeth Patton MD Infectious Diseases [employer] [facility] M [phone] O [phone]
--- NOTE | 2019-04-07 16:09 | Magnetic Resonance Report ---
PROCEDURE: MR BRAIN WO CON TECHNIQUE: Magnetic resonance imaging of the brain was performed without contrast material. HISTORY: ENCEPHALOPATHY, STATUS POST FALL, WEAKNESS COMPARISONS: None . FINDINGS: There is no evidence of acute intracranial hemorrhage. No parenchymal hemorrhage, mass lesions or mas s effect are identified. The ventricles, sulcal pattern and fissures are prominent consistent with mo derate diffuse atrophy.Nonspecific mineralization of the basal ganglia visualized. There is a dural b ased extra-axial density right frontal lobe superiorly laterally seen best on coronal image 21 series 3 measuring approximately 1.1 x 0.6 cm. Signal intensity appears to be isointense to khalil matter. Th e appearance suggests a small meningioma. There is no mass effect. This was seen on the prior CT scan of the brain performed on 04/05/2019 There is mild increased T2 signal in the periventricular white matter and deep white matter consisten t with mild gliosis related to microvascular disease or white matter changes of aging. Old lacunar in farct visualized right side of the dennis inferiorly and in the right and left basal ganglia as well as posteriorly in the right cerebellar hemisphere. No abnormal areas of restricted diffusion are seen t hat would suggest an acute ischemic event. No abnormal extra-axial fluid collections or masses are id entified. Corpus callosum, region of the pituitary fossa and foramen magnum show no abnormalities. Minimal mucosal disease seen in a few of the anterior ethmoid air cells. Paranasal sinuses otherwise are clear. Mastoid air cells are clear. IMPRESSION: No acute intracranial abnormalities are identified. There is evidence of moderate atrophy and mild gliosis. Small old lacunar infarcts are visualized as described. A small dural based extra-axial nodule as renetta cribed is also visualized suggesting a meningioma without mass effect. This document is electronically signed by Yusuf Quiroz MD., Apr 07 2019 04:06:56 PM ET
[2019-04-07] MEDS: HumaLOG SUB-Q SCH ×2 (17:05→23:09)
--- NOTE | 2019-04-07 17:15 | Ultrasound Report ---
PROCEDURE: US RENAL BILAT TECHNIQUE: Ultrasound kidneys HISTORY: UTI COMPARISONS: There are no prior studies available for comparison at this time. FINDINGS: Right kidney measures 10.3 x 5.0 x 4.2 cm. There are 3 small cortical anechoic foci seen compatible w ith small cysts largest measuring 0.8 x 0.7 cm. No evidence for hydronephrosis. Cortical thickness 1. 3 cm Left kidney measures 11.3 x 4.9 x 5.3 cm. No evidence for hydronephrosis. Cortical thickness 1.5 cm. Adjacent to the lower pole there is increased echogenicity with a masslike configuration measuring 8. 7 x 8.2 x 7.2 cm may reflect pararenal fat versus echogenic mass. Recommend follow-up CT for further evaluation IMPRESSION: Question of increased pararenal fat on the left versus echogenic mass. A follow-up CT is recommended for further evaluation Small right renal cysts noted. This document is electronically signed by Joel Boland MD., Apr 07 2019 05:13:22 PM ET
--- NOTE | 2019-04-07 17:22 | Cat Scan Report ---
PROCEDURE: CT CHEST WO CON TECHNIQUE: CT chest without contrast HISTORY: ADENOPATHY COMPARISONS: FINDINGS: No evidence for mediastinal mass or pathologic lymph node enlargement. Nonenhanced images of the hear t and great vessels are unremarkable. Calcification noted at the mitral annulus. Mild scarring noted at the lung bases. No acute appearing infiltrate identified. No pleural fluid col lection seen. Nonenhanced images visualized upper abdomen is unremarkable. IMPRESSION: Negative noncontrast CT chest. This document is electronically signed by Joel Boland MD., Apr 07 2019 05:20:38 PM ET
[2019-04-08] MEDS: NACL 0.9% 1000 ML 1,000 ML IV SCH ×2 (06:50→23:18)
[2019-04-08] MEDS: HumaLOG SUB-Q SCH ×4 (07:29→23:17)
[2019-04-08 08:28] LABS: Calcium 8.2 mg/dL (8.4-10.2)
[2019-04-08] MEDS: LYRICA PO SCH ×2 (09:27→23:16)
[2019-04-08] MEDS: COREG PO SCH ×2 (09:27→23:16)
[2019-04-08] MEDS: ICOSAPENT ETHYL 1 GM PO SCH (09:28)
[2019-04-08] MEDS: DDAVP PO SCH (09:28)
[2019-04-08] MEDS: TRICOR PO SCH (09:28)
[2019-04-08] MEDS: BABY ASPIRIN PO SCH (09:28)
[2019-04-08] MEDS: SODIUM CHLORIDE FLUSH SYRINGE 10 ML IV SCH ×2 (09:29→23:16)
[2019-04-08] MEDS: LOVENOX SUB-Q SCH (09:29)
[2019-04-08] MEDS: ROCEPHIN/NS 2 GM/100 ML 2 GM/100 ML BAG IV SCH (09:35)
--- NOTE | 2019-04-08 13:47 | Progress Note ---
Assessment and Plan Assessment and plan: 83-year-old woman with a history of diabetes, hypertension, hyperlipidemia, dementia comes to the emergency room because the state that she needed assistance to do her ADLs. She feels weak, status post fall yesterday, hit her face, no trauma to head. 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 - Blood culture with no growth, obtain renal ultrasound Acute Metabolic encephalopathy -MRI head pending. Urinary tract infection admitted to [facility] Ceftriaxone iv dose changed Still with fever Consult ID ROMELIA possibly due to vasomotor nephropathy improving, on iv fluids Generalized weakness due to dehydration Hyponatremia Improving Diabetes mellitus type 2 Fingerstick glucose q ac and hs Hyperlipidemia Dementia frontal meningioma on CT, also on MRI -Pt to follow with PCP outpatient for further work up. Discussed with patient and Used language line for communication with Patient and . Patient is Tajik Hopefully dc home in 1 day History Interval history: Patient seen and examined, Clinically improving and more awake today. Hospitalist Physical - Physical exam Narrative exam: VITAL SIGNS: Reviewed. GENERAL: The patient appeared well nourished and normally developed, obese, Vital signs as documented. HEAD: No signs of head trauma. right maxillary sinus swelling, no echymosis EYES: Pupils are equal. Extraocular motions intact. EARS: Hearing grossly intact. MOUTH: Oropharynx is normal. NECK: No adenopathy, no JVD. Mildly tender on the right side. CHEST: Chest with clear breath sounds bilaterally. No wheezes, rales, or rhonchi. CARDIAC: Regular rate and rhythm. S1 and S2, without murmurs, gallops, or rubs. VASCULAR: No Edema. Peripheral pulses normal and equal in all extremities. ABDOMEN: Soft, non tender and non distended. No rebound or guarding, and no masses palpated. Bowel Sounds normal. MUSCULOSKELETAL: Good range of motion of all major joints. Extremities without clubbing, cyanosis or edema. NEUROLOGIC EXAM: Alert and oriented x 2 No focal sensory or strength deficits. Speech normal but often uncomprehending per . Follows some commands. PSYCHIATRIC: Mood normal. SKIN: No rash or lesions. - Constitutional Vitals: Temp Pulse Resp BP Pulse Ox 98.1 F 84 20 149/69 97 04/08/19 07:32 04/08/19 09:27 04/08/19 10:00 04/08/19 09:27 04/08/19 10:00 Results - Labs CBC & Chem 7: 04/07/19 04:43 04/08/19 07:45 Labs: Laboratory Last Values WBC 5.2 K/mm3 (4.5-11.0) 04/07/19 04:43 RBC 4.11 M/mm3 (3.65-5.03) 04/07/19 04:43 Hgb 12.1 gm/dl (10.1-14.3) 04/07/19 04:43 Hct 35.8 % (30.3-42.9) 04/07/19 04:43 MCV 87 fl (79-97) 04/07/19 04:43 MCH 29 pg (28-32) 04/07/19 04:43 MCHC 34 % (30-34) 04/07/19 04:43 RDW 13.7 % (13.2-15.2) 04/07/19 04:43 Plt Count 147 K/mm3 (140-440) 04/07/19 04:43 Lymph % (Auto) 13.6 % (13.4-35.0) 04/06/19 09:09 [place] % (Auto) 9.9 % (0.0-7.3) H 04/06/19 09:09 Eos % (Auto) 0.9 % (0.0-4.3) 04/06/19 09:09 Baso % (Auto) 0.3 % (0.0-1.8) 04/06/19 09:09 Lymph # 0.9 K/mm3 (1.2-5.4) L 04/06/19 09:09 [place] # 0.6 K/mm3 (0.0-0.8) 04/06/19 09:09 Eos # 0.1 K/mm3 (0.0-0.4) 04/06/19 09:09 Baso # 0.0 K/mm3 (0.0-0.1) 04/06/19 09:09 Seg Neutrophils % 75.3 % (40.0-70.0) H 04/06/19 09:09 Seg Neutrophils # 4.9 K/mm3 (1.8-7.7) 04/06/19 09:09 Sodium 140 mmol/L (137-145) 04/08/19 07:45 Potassium 4.0 mmol/L (3.6-5.0) 04/08/19 07:45 Chloride 104.2 mmol/L (98-107) 04/08/19 07:45 Carbon Dioxide 25 mmol/L (22-30) 04/08/19 07:45 15 mmol/L 04/08/19 07:45 BUN 16 mg/dL (7-17) 04/08/19 07:45 1.2 mg/dL (0.7-1.2) 04/08/19 07:45 Estimated GFR 43 ml/min 04/08/19 07:45 13 % 04/08/19 07:45 Glucose 146 mg/dL (65-100) H 04/08/19 07:45 POC Glucose 224 (70-105) H 04/08/19 11:18 Lactic Acid 0.80 mmol/L (0.7-2.0) 04/05/19 23:08 Calcium 8.2 mg/dL (8.4-10.2) L 04/08/19 07:45 0.50 mg/dL (0.1-1.2) 04/05/19 20:25 AST 32 units/L (5-40) 04/05/19 20:25 ALT 25 units/L (7-56) 04/05/19 20:25 78 units/L (35-129) 04/05/19 20:25 < 0.010 ng/mL (0.00-0.029) 04/05/19 20:25 7.8 g/dL (6.3-8.2) 04/05/19 20:25 3.4 g/dL (3.9-5) L 04/05/19 20:25 0.8 % 04/05/19 20:25 Bonnie (Yellow) 04/05/19 20:47 Cloudy (Clear) 04/05/19 20:47 5.0 (5.0-7.0) 04/05/19 20:47 Ur Specific [place] 1.016 (1.003-1.030) 04/05/19 20:47 >500 mg/dL (Negative) 04/05/19 20:47 50 mg/dL (Negative) 04/05/19 20:47 Neg mg/dL (Negative) 04/05/19 20:47 Mod (Negative) 04/05/19 20:47 Neg (Negative) 04/05/19 20:47 Neg (Negative) 04/05/19 20:47 < 2.0 mg/dL (<2.0) 04/05/19 20:47 Ur Leukocyte Esterase Sm (Negative) 04/05/19 20:47 64.0 /HPF (0.0-6.0) H 04/05/19 20:47 7.0 /HPF (0.0-6.0) 04/05/19 20:47 3+ /HPF 04/05/19 20:47 Amorphous Crystals 1+ 04/05/19 20:47 Few /HPF 04/05/19 20:47 Active Medications - Current Medications Current Medications: Generic Name Dose Route Start Last Admin Trade Name Freq PRN Reason Stop Dose Admin Acetaminophen 650 mg 04/06/19 00:02 04/07/19 09:07 Tylenol PO 650 mg Q4H PRN Administration Pain MILD(1-3)/Fever >100.5/VILLALBA Aspirin 81 mg 04/06/19 10:00 04/08/19 09:28 Baby Aspirin PO 81 mg DAILY KASSIE Administration Atorvastatin Calcium 20 mg 04/06/19 22:00 04/07/19 22:09 Lipitor PO 20 mg QHS KASSIE Administration Carvedilol 6.25 mg 04/06/19 22:00 04/08/19 09:27 Coreg PO 6.25 mg BID KASSIE Administration Desmopressin Acetate 0.2 mg 04/06/19 10:00 04/08/19 09:28 Ddavp PO 0.2 mg DAILY KASSIE Administration Dextrose 50 ml 04/06/19 00:02 D50w (25gm) Syringe IV PRN PRN Hypoglycemia Enoxaparin Sodium 30 mg 04/06/19 10:00 04/08/19 09:29 Lovenox SUB-Q 30 mg QDAY KASSIE Administration Fenofibrate 145 mg 04/06/19 10:00 04/08/19 09:28 Tricor PO 145 mg DAILY KASSIE Administration Sodium Chloride 1,000 mls @ 75 mls/hr 04/06/19 01:00 04/08/19 06:50 Nacl 0.9% 1000 Ml IV 75 mls/hr DIRECT KASSIE Administration Ceftriaxone Sodium 2 gm in 100 mls @ 200 mls/hr 04/08/19 10:00 04/08/19 09:35 Rocephin/Ns 2 Gm/100 Ml IV 200 mls/hr Q24HR KASSIE Administration Insulin Human Lispro 0 unit 04/07/19 16:30 04/08/19 12:05 Humalog SUB-Q 3 unit ACHS KASSIE Administration Protocol Miscellaneous Medication 1 gm 04/06/19 10:00 04/08/19 09:28 Icosapent Ethyl [Vascepa] PO 1 gm DAILY KASSIE Administration Ondansetron HCl 4 mg 04/06/19 00:02 Zofran IV Q8H PRN Nausea And Vomiting Pregabalin 75 mg 04/06/19 10:00 04/08/19 09:27 Lyrica PO 75 mg BID KASSIE Administration Sodium Chloride 10 ml 04/06/19 10:00 04/08/19 09:29 Sodium Chloride Flush Syringe 10 Ml IV 10 ml BID KASSIE Administration Sodium Chloride 10 ml 04/06/19 00:02 Sodium Chloride Flush Syringe 10 Ml IV PRN PRN LINE FLUSH Nutrition/Malnutrition Assess - Dietary Evaluation Nutrition/Malnutrition Findings: Nutrition Notes Start: 04/06/19 11:55 Freq: Status: Active Protocol: Document 04/06/19 11:55 AMEE (Rec: 04/06/19 12:00 AMEE [id number] [email or web address]) Nutrition Notes Need for Assessment generated from: 911 emergency services dispatcher Initial or Follow up Assessment Current Diagnosis Diabetes,Hypertension, Hyperlipidemia Other Pertinent Diagnosis ARF, UTI, Dementia Current Diet Cardiac/Consistent CHO Labs/Tests BUN 27 Cr 1.6 BG 159 Pertinent Medications Reviewed Height 5 ft 4 in Weight 68.039 kg [place] Body Weight (kg) 54.54 BMI 25.7 Weight Status Appropriate Subjective/Other Information Pt screened for chewing difficulty and skin risk ( Son score: 14). Burn Absent Trauma Absent Difficulty In Chewing #1 Nutrition Diagnosis Predicted suboptimal energy intake Etiology advanced age; hx of dementia, UTI As Evidenced by Signs and Symptoms pt confused upon arrival and is weak Is patient on ventilator? No Is Patient Ambulatory and/or Out of Bed No [facility] [phone] Calculation Used for Recommendations [facility] Additional Notes Pro needs 1-1.2g/k-82g/ day Fluid needs 1ml/kcal Nutrition Intervention Change Diet Order: Add mech soft modifier to current diet order Goal #1 PO intake of meals to meet at least 75% of energy and pro needs Anticipated Discharge Needs: None identified at this time Follow-Up By: 04/09/19 Additional Comments F/U: intakes
--- NOTE | 2019-04-08 21:52 | Progress Note ---
Assessment and Plan Cultures: Blood cultures 04/05/2019 no growth today Assessment: 83 y/o female with history of hypertension, diabetes and early dementia admitted on due to 3-day history of AMS/confusion, generalized weakness and a fall from bed to ground landing on her left face: 1) Sepsis: Present on admission, manifested by fever, tachycardia, ROMELIA and AMS. Etiology most likely UTI +/- ? bronchitis. 2) UTI: UA with 64 wbc, small LE, 3+ wbc clumps. Renal US with left pararenal fat. 3) Bronchitis: CXR showed prominence of the interstitial markings with peribronchial thickening, acute versus chronic, enlarged cardiac silhouette, tortuosity thoracic aorta with atherosclerotic vascular calcification and prominence of the hilar structures bilaterally. Prominent vascular structures versus adenopathy.CT chest no consolidations no masses. 4) Acute encephalopathy on top of early dementia. CT no acute changes, right small frontal meningioma, old lacunar infarct. Better. 5) ROMELIA: renally dosed all antibiotics. Recommendations: - follow-up blood cultures, request stat urine culture -pending - continue ceftriaxone 2 gm IV qday - monitor fever Will follow. Lizeth Patton MD Infectious Diseases Building Engineer [facility] ([facility]) M [phone] O [phone] Subjective Date of service: 04/08/19 Principal diagnosis: uti Interval history: pt feels better, no fever, no n/v/d Objective - Exam Narrative Exam: General appearance: Alert in NAD Eyes: anicteric sclerae, moist conjunctivae; no lid-lag; PERRLA HENT: Atraumatic; oropharynx clear with moist mucous membranes and no mucosal ulcerations/no oral thrush; normal hard and soft palate. Normal external ears. Neck: Trachea midline; supple, no thyromegaly or lymphadenopathy Lungs: CTA CV: RRR no murmur Abdomen: Soft, non-tender; no masses or hepatosplenomegaly Extremities: no edema, cyanosis Skin: Normal temperature, turgor and texture; no rash, ulcers or subcutaneous nodules Psych: Appropriate affect, alert and oriented to person, place and time. Neuro: alert and oriented x 3. Moving all extermities - Constitutional Vitals: Vital Signs Temp Pulse Resp BP Pulse Ox 99.7 F H 82 20 174/73 98 04/08/19 19:35 04/08/19 19:35 04/08/19 19:35 04/08/19 19:35 04/08/19 20:52 Temperature -Last 24 Hours Temperature 99.7 F Temperature 98.1 F Temperature 99.4 F - Labs CBC & Chem 7: 04/07/19 04:43 04/08/19 07:45 Labs: Abnormal lab results 04/07/19 04/08/19 04/08/19 Range/Units 22:19 07:14 07:45 Glucose 146 H (65-100) mg/dL POC Glucose 227 H 146 H (70-105) Calcium 8.2 L (8.4-10.2) mg/dL 04/08/19 04/08/19 Range/Units 11:18 16:25 Glucose (65-100) mg/dL POC Glucose 224 H 179 H (70-105) Calcium (8.4-10.2) mg/dL
[2019-04-09] MEDS: HumaLOG SUB-Q SCH ×2 (08:09→14:35)
[2019-04-09] MEDS: TRICOR PO SCH (09:42)
[2019-04-09] MEDS: LOVENOX SUB-Q SCH (09:42)
[2019-04-09] MEDS: DDAVP PO SCH (09:42)
[2019-04-09] MEDS: BABY ASPIRIN PO SCH (09:43)
[2019-04-09] MEDS: COREG PO SCH (09:43)
[2019-04-09] MEDS: ROCEPHIN/NS 2 GM/100 ML 2 GM/100 ML BAG IV SCH (09:43)
[2019-04-09] MEDS: ICOSAPENT ETHYL 1 GM PO SCH (09:44)
[2019-04-09] MEDS: LYRICA PO SCH (09:45)
[2019-04-09] MEDS: SODIUM CHLORIDE FLUSH SYRINGE 10 ML IV SCH (09:47)
--- NOTE | 2019-04-09 10:21 | Progress Note ---
Assessment and Plan Cultures: Blood cultures 04/05/2019 no growth today Urine cultures 04/08/2019 <10 col Assessment: 83 y/o female with history of hypertension, diabetes and early dementia admitted on due to 3-day history of AMS/confusion, generalized weakness and a fall from bed to ground landing on her left face: 1) Sepsis:resolved, ROMELIA and AMS. Etiology most likely UTI +/- ? bronchitis. 2) UTI: UA with 64 wbc, small LE, 3+ wbc clumps. Renal US with left pararenal fat. Urine cx 04/08 <10 3) Bronchitis: CXR showed prominence of the interstitial markings with peribronchial thickening, acute versus chronic, enlarged cardiac silhouette, tortuosity thoracic aorta with atherosclerotic vascular calcification and prominence of the hilar structures bilaterally. Prominent vascular structures versus adenopathy.CT chest no consolidations no masses. 4) Acute encephalopathy on top of early dementia. CT no acute changes, right small frontal meningioma, old lacunar infarct. Better. 5) ROMELIA: renally dosed all antibiotics.Resolved Recommendations: - continue ceftriaxone 2 gm IV qday D4 - ok to d/c home on ceftin 500 mg PO BID total 7 days until 04/12/[address] Eden Will follow. Lizeth Patton MD Infectious Diseases Sand Cutter Operator [facility] ([facility]) M [phone] O [phone] Subjective Date of service: 04/09/19 Principal diagnosis: uti Interval history: pt feels better, no complaints, no fever, no n/v/d ROS limited Objective - Exam Narrative Exam: General appearance: Alert in NAD Eyes: anicteric sclerae, moist conjunctivae; no lid-lag; PERRLA HENT: Atraumatic; oropharynx clear with moist mucous membranes and no mucosal ulcerations/no oral thrush; normal hard and soft palate. Normal external ears. Neck: Trachea midline; supple, no thyromegaly or lymphadenopathy Lungs: CTA CV: RRR no murmur Abdomen: Soft, non-tender; no masses or hepatosplenomegaly Extremities: no edema, cyanosis Skin: Normal temperature, turgor and texture; no rash, ulcers or subcutaneous nodules Psych: Appropriate affect, alert and oriented to person, place and time. Neuro: alert and oriented x 3. Moving all extermities - Constitutional Vitals: Vital Signs Temp Pulse Resp BP Pulse Ox 98.2 F 78 16 170/70 99 04/09/19 07:38 04/09/19 07:00 04/09/19 07:38 04/09/19 09:43 04/09/19 07:00 Temperature -Last 24 Hours Temperature 98.2 F Temperature 98.2 F Temperature 97.9 F Temperature 99.7 F - Labs CBC & Chem 7: 04/07/19 04:43 04/08/19 07:45 Labs: Abnormal lab results 04/08/19 04/08/19 04/08/19 Range/Units 11:18 16:25 21:55 POC Glucose 224 H 179 H 241 H (70-105) 04/08/19 Range/Units 22:09 POC Glucose 219 H (70-105)
--- NOTE | 2019-04-09 10:34 | Discharge Summary ---
Providers - Providers Date of Admission: 04/05/19 23:25 Attending physician: SO LIAO MD 04/06/19 08:06 Physical Therapy Evaluation and Treat [CONS] Routine Comment: Reason For Exam: Gen weakness 04/07/19 12:01 Consult to Physician [CONS] Routine Comment: Consulting Provider: FRANKLIN MANUEL Physician Instructions: Reason For Exam: sepsis, UTI 04/09/19 10:33 Consult to Case Management [CONS] Routine Services Needed at Discharge: DME Equipment Additional Physician Instructions: wheel chair Hospitalization Reason for admission: acute cystitis Condition: Stable Hospital course: 83-year-old woman with a history of diabetes, hypertension, hyperlipidemia, dementia comes to the emergency room because the state that she needed assistance to do her ADLs. She feels weak, status post fall yesterday, hit her face, no trauma to head. 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 Findings on Imaging including Frontal meningioma were discussed with the patient and using interpretation and they will follow with their primary care. 1) Sepsis seccondary to acute cystitis 2. ROMELIA . 3) UTI: 4) Bronchitis 5) Acute encephalopathy on top of early dementia. CT no acute changes, right small frontal meningioma, old lacunar infarct. Better. 6) ROMELIA: 7)Generalized weakness due to dehydration 8) Hyponatremia 9) Diabetes mellitus type 2 10)Hyperlipidemia 11) Dementia 12) frontal meningioma Disposition: [id number]/TX-06 HOME UNDER HOME [facility] Core Measure Documentation - Palliative Care Palliative Care/ Comfort Measures: Not Applicable - Core Measures Any of the following diagnoses?: none Exam - Physical Exam Narrative exam: VITAL SIGNS: Reviewed. GENERAL: The patient appeared well nourished and normally developed, obese, Vital signs as documented. HEAD: No signs of head trauma. right maxillary sinus swelling, no echymosis EYES: Pupils are equal. Extraocular motions intact. EARS: Hearing grossly intact. MOUTH: Oropharynx is normal. NECK: No adenopathy, no JVD. Mildly tender on the right side. CHEST: Chest with clear breath sounds bilaterally. No wheezes, rales, or rhonchi. CARDIAC: Regular rate and rhythm. S1 and S2, without murmurs, gallops, or rubs. VASCULAR: No Edema. Peripheral pulses normal and equal in all extremities. ABDOMEN: Soft, non tender and non distended. No rebound or guarding, and no masses palpated. Bowel Sounds normal. MUSCULOSKELETAL: Good range of motion of all major joints. Extremities without clubbing, cyanosis or edema. NEUROLOGIC EXAM: Alert and oriented x 2 No focal sensory or strength deficits. Speech normal but often uncomprehending per . Follows some commands. PSYCHIATRIC: Mood normal. SKIN: No rash or lesions. - Constitutional Vitals: Temp Pulse Resp BP Pulse Ox 98.2 F 78 16 170/70 99 04/09/19 07:38 04/09/19 07:00 04/09/19 07:38 04/09/19 09:43 04/09/19 07:00 Plan Activity: advance as tolerated, fall precautions Diet: low fat Special Instructions: physical therapy, occupational therapy Additional Instructions: FOLLOW WITH PROTOTYPE SEWER TO FURTHER EVAULATE PRIOR FINDINGS OF ADENOPATHY Follow up with: REKHA RAMIREZ MD [Staff Physician] - 3-5 Days FRANKLIN MANUEL MD [Staff Physician] - 7 Days MALORIE SLADE MD [Staff Physician] - 7 Days Prescriptions: Cefuroxime Axetil [Ceftin] 500 mg PO Q12H 4 Days ml Other Discharge Orders: Wheelchair (Amb) Location: None Selected
[2019-04-09 14:54] VITALS: BP 176/61
== END 2019-04-09 19:25 | disposition home health service (06) | DRG 871 ==
LOC: ED 20:24 → 2B-ACE 23:25
PROVIDERS: ADMIT Internal Medicine; ATTEND Internal Medicine
PROC: 3E0234Z Introduction of Serum, Toxoid and Vaccine into Muscle, Percutaneous Approach (ICD-10-PCS; principal; 2019-04-06)
DX: A41.9 Sepsis, unspecified organism (principal); N17.0 Acute kidney failure with tubular necrosis; G93.41 Metabolic encephalopathy; N30.00 Acute cystitis without hematuria; E87.1 Hypo-osmolality and hyponatremia; E11.9 Type 2 diabetes mellitus without complications; I10 Essential (primary) hypertension; F03.90 Unspecified dementia, unspecified severity, without behavioral disturbance, psychotic disturbance, mood disturbance, and anxiety; D32.9 Benign neoplasm of meninges, unspecified; E78.5 Hyperlipidemia, unspecified; J40 Bronchitis, not specified as acute or chronic; Z79.82 Long term (current) use of aspirin; Z79.899 Other long term (current) drug therapy; Z82.49 Family history of ischemic heart disease and other diseases of the circulatory system; Z23 Encounter for immunization
CPT/HCPCS: 36415; 70450; 70486; 70551; 71045; 71250; 76770; 80048; 80053; 81001; 82140; 82962; 84484; 85025; 85027; 87040; 87086; 87116; 90686; 90732; 93005; 93010; 94760; 96365; 99291; G0378; A9270-GY; J0696; J1650; J1815; J2543; J7030

== ENCOUNTER 2022-07-26 22:23 | Emergency (ER) | payer MEDICARE ==
--- NOTE | 2022-07-26 22:48 | Emergency Department Report ---
ED General Adult HPI - General Stated complaint: CARDIAC PUI?: No Time Seen by Provider: 07/26/22 22:28 Source: EMS - History of Present Illness Initial comments: 87 year-old female brought in by EMS with witnessed arrest; and 2109 when 911 was paged out. Per EMS, on arrival, CPR in progress. On route, total of 3 EPI, 1 Bicarb, no shock, no ROSC; glucose in 400s. States patient takes bunch of 'cardiac medications'. On arrival, CPR in progress and patient intubate. After transfer from their stretcher to ours, pulse check did not reveal any pulse and CPR resumed. 1 Epi, 1 Bicarb, 1 Calcium gluconate given and at pulse check; no pulse and no shock advised. Pupil dilated and time of called at 2226. No family at bedside. - Related Data Home Medications Medication Instructions Recorded Confirmed Last Taken Aspirin [Aspirin BABY CHEW TAB] 81 mg PO DAILY 12/06/14 01/29/20 04/05/19 Alendronate Sodium [Fosamax] 70 mg PO QWEEK 04/05/19 01/29/20 04/05/19 AtorvaSTATin [Lipitor] 20 mg PO QHS 04/05/19 01/29/20 04/05/19 Desmopressin Acetate 0.2 mg PO DAILY 04/05/19 01/29/20 04/05/19 Pregabalin 75 mg PO BID 04/05/19 01/29/20 04/05/19 carvediloL [Coreg] 6.25 mg PO BID 04/05/19 01/29/20 04/05/19 Allergies Allergy/AdvReac Type Severity Reaction Status Date / Time No Known Allergies Allergy Verified 12/03/14 11:19 ED Review of Systems ROS: Stated complaint: CARDIAC Other details as noted in HPI Comment: Unobtainable due to pts medical conditions ED Past Medical Hx - Past Medical History Previous Medical History?: Yes Hx Hypertension: Yes (increased cholesterol) Hx Diabetes: Yes Hx Deep Vein Thrombosis: No Hx Asthma: Yes Hx Dementia: Yes - Surgical History Hx Pacemaker: No Hx Internal Defibrillator: No - Social History Smoking Status: Unknown if ever smoked - Medications Home Medications: Home Medications Medication Instructions Recorded Confirmed Last Taken Type Aspirin [Aspirin BABY CHEW TAB] 81 mg PO DAILY 12/06/14 01/29/20 04/05/19 History Alendronate Sodium [Fosamax] 70 mg PO QWEEK 04/05/19 01/29/20 04/05/19 History AtorvaSTATin [Lipitor] 20 mg PO QHS 04/05/19 01/29/20 04/05/19 History Desmopressin Acetate 0.2 mg PO DAILY 04/05/19 01/29/20 04/05/19 History Pregabalin 75 mg PO BID 04/05/19 01/29/20 04/05/19 History carvediloL [Coreg] 6.25 mg PO BID 04/05/19 01/29/20 04/05/19 History ED Physical Exam - General Limitations: Altered Mental Status General appearance: other - Head Head exam: Present: atraumatic, normocephalic, normal inspection - Eye Eye exam: Present: other (dilated pupil) - ENT ENT exam: Present: other (intubated) - Cardiovascular Cardiovascular Exam: Present: other (no pulse) - GI/Abdominal GI/Abdominal exam: Present: soft Critical Care Time: Yes Critical care time in (mins) excluding proc time.: 6 Critical care attestation.: If time is entered above; I have spent that time in minutes in the direct care of this critically ill patient, excluding procedure time. ED Disposition Clinical Impression: Cardiopulmonary arrest Disposition: 20 Is pt being admited?: No Does the pt Need Aspirin: No Condition: Stable Time of Disposition: 22:48
[2022-07-26] MEDS ORDERED: EPINEPHrine 1 MG/10 ML SYRINGE ONE (23:50)
[2022-07-26] MEDS ORDERED: SODIUM BICARB 8.4% 50 MEQ/50 ML SYRINGE IV ONE (23:50)
[2022-07-26] MEDS ORDERED: CALCIUM CHLORIDE 1,000 MG/10 ML SYRINGE IV ONE (23:50)
== END 2022-07-27 03:00 ==
LOC: ED 22:23
DX: I46.9 Cardiac arrest, cause unspecified (principal)
CPT/HCPCS: 92950; 99285; J0171; J3490